=== PATIENT | female | born 1950 | race Caucasian/White ===

== ENCOUNTER 2018-06-09 10:07 | Inpatient (IN) | payer OTHER ==
[~2018-06-09] VITALS: Ht 167.6 cm; Wt 61.2 kg
[~2018-06-09 10:07] MED LIST: ASPIRIN81 M2 PO; BACTRIM DS TAB1 EACH PO; BUFFERIN 81 MG81 MG; CALCIUM 1,0001 EACH PO; CARDIZEM CD240 MG PO; CELEBREX50 MG PO; CENTRUM TABLET1 TAB PO; CHANTIX1 MG PO; DIOVAN160 MG PO; DOCUSATE SODIU100 MG PO; E-400 C-500 &1 EACH PO; FAMOTIDINE20 MG PO; FENTANYL PA25 MCG/HR TP; HYDROCODON-ACE1 EAC7 PO; HYDROCODON-ACE1 EAC8 PO; HYDROCODONE-AP1 EA11 PO; IRON325; MELOXICAM7.5 MG PO; MS CONTIN 30 MG30 M1 PO; NORCO 10-325 T1 EACH PO; OMEGA-3 FISH O1 EAC3 PO; OXYCONTIN20 M1 PO; OXYIR5 MG PO; PARAFON FORTE500 M2 PO; PROBIOTIC DIGE1 EACH PO; ROBAXIN 750 MG750 M1 PO; SPECTRACEF400 MG PO; SUPER B COMPLE1 EAC2 PO; ULTRAM ER100 MG PO; VITAMIN C + RO500 MG PO; VITAMIN D31000 UNI2 PO; WELLBUTRIN 100100 M1 PO; WELLBUTRIN 100100 MG NG; WELLBUTRIN 100100 MG PO; WELLBUTRIN SR150 MG PO; XOPENEX HF1 UDINHALE IH; ZOLOFT100 MG PO
[2018-06-10 15:02] VITALS: BP 131/73
[2018-06-10 19:42] VITALS: BP 122/65
--- NOTE | 2018-06-10 20:13 | NUR ---
PT ARRIVED FROM [facility] AT 1530 WITH VOLUNTEER TRANSPORT. C/O PAIN IN HER LOWER BACK AND AROUND PEG TUBE. PEG TUBE REMAINS INTACT AND PATENT, SITE CLEANED AND DRESSING CHANGED. VITALS REMAIN STABLE. TRACH SITE INCISION HEALED, REDNESS AROUND SITE NOTED. LS COARSE, PT HAS A NON-PRODUCTIVE COUGH, ON RA WITH SATS >95%. UP WITH 1 PERSON PIVOT TRANSFER AND TOLERATED WELL. Q1H VISUAL CHECKS. CALL LIGHT WITHIN REACH. FALL PRECAUTIONS IN PLACE
--- NOTE | 2018-06-10 23:58 | NUR ---
ASSUMED CARE OF PT AT 1915. AT 234, PT AMBULATED TO BATHROOM. ON RETURN TO HER BED, PT C/O SHORTNESS OF AIR. O2 SAT=99% ON RETURN TO BED, LUNGS WITH STRIDOR. RESPIRATORY THERAPIST EXAMINED PT, PLACED COOLED OXYGEN PER MASK. XANAX GIVEN PO, AFTER PT C/O FEELING ANXIOUS. AT 235, PT STATED SHE WAS FEELING "BETTER", OXYGEN SAT=98%. CALL PLACED TO DR APPLE'S ANSWERING SERVICE TO REQUEST PRN NEB TX. AWAITING CALL BACK. WILL CONTINUE TO MONITOR CLOSELY.
--- NOTE | 2018-06-11 03:58 | NUR ---
PT HAS HAD NO FURTHER C/O SHORTNESS OF AIR. FELL ASLEEP APPROX 30 MINUTES AFTER XANAX GIVEN. SHE REMOVED O2 MASK AFTER 20 MINUTES, NO DYPSNEA NOTED SINCE. HAS APPEARED TO BE SLEEPING WHEN CHECKED ON HOURLY ROUNDS. FALL PRECAUTIONS IN PLACE.
[2018-06-11 05:11] LABS: HEMATOCRIT 31.5 % (37.0-47.0); MCH 29.6 pg (26.0-34.0); MCHC 31.7 g/dL (28.0-37.0); MCV 93.4 fL (80.0-100.0); RBC 3.37 mil/uL (4.20-5.00); RDW 17.6 % (10.5-14.5); WBC 11.1 thou/uL (4.0-11.0)
[2018-06-11 05:30] LABS: CREATININE 0.6 mg/dL (0.6-1.0); POTASSIUM 3.7 mmol/L (3.5-5.1)
[2018-06-11 07:30] VITALS: BP 103/61
--- NOTE | 2018-06-11 09:40 | NUR ---
tried to visit with sharyn perez 2 this am, she was working with ot and then with st. will follow as needed for dc needs.
--- NOTE | 2018-06-11 12:03 | NUR ---
ASSUMED CARE AT 0700. PATIENT IS ALERT AND ORIENTED X4. PATIENT HAS LEFT EYE BLINDNESS. CHAVES'S, COMMUNITY HEALTH NURSING DIRECTOR ARE EQUAL. LUNGS ARE COARSE AND DEMINISHED. PATIENT CONTINUES ON RESPIRATORY TX. ABD IS SOFT WITH BSX4. UP TO THE DINING ROOM PER W/C. PATIENT IS INCONTINENT OF B & B. FALL AND SAFETY PROTOCOLS IN PLACE. DENIES PAIN AT THIS TIME. CONTINUES TO PROGRESS SLOWLY TOWARDS D/C GOALS. WILL CONTINUE TO MONITER.
--- NOTE | 2018-06-11 12:14 | NUR ---
PATIENT HAS A G.T. FOR TUBE FEEDING IF SHE EATS <50% OF HER MEALS. SHE IS TO RECIEVE 1 CAN PER G.T. WILL CONTINUE TO MONITER.
--- NOTE | 2018-06-11 14:46 | NUR ---
Patient participated in community reintegration on 06/11/18 with PHYSICAL THERAPY. Refer to documentation by PT.
[2018-06-11 17:00] VITALS: BP 125/79
[2018-06-11 19:23] VITALS: BP 116/58
[2018-06-11 22:10] LABS: GLYCOHEMOGLOBIN (HGB A1C) 5.2 % (4.8-5.6)
--- NOTE | 2018-06-12 03:40 | NUR ---
ASSUMED CARE OF PT AT 1915. PT ALERT AND ORIENTED X4. PT SLEPT QUIETLY UNTIL 0200, WHEN SHE WAS AMBULATED TO THE BATHROOM. ON RETURN TO BED, SHE C/O SHORTNESS OF AIR. O2 SAT WAS 99% ON ROOM AIR, LUNGS WITH SCATTERED WHEEZES AND COARSE. OXYCODONE GIVEN FOR C/O PAIN, AND NEB TX GIVEN BY RESP THERAPY. PT HAS APPEARED TO BE SLEEPING SINCE THAT TIME WITHOUT FURTHER C/O'S. AMBULATED WITH ASSIST OF ONE USING GAIT BELT AND WALKER. CHECKED ON HOURLY ROUNDS. BED ALARM ON.
[2018-06-12 08:35] VITALS: BP 108/68
--- NOTE | 2018-06-12 09:59 | HC ---
[facility] [place] [address] CONSULTATION Name: PRIMO THOMAS Room #: 509-P ADM IN M.R.#: [id number] Admission: 06/10/18 Attend Phys: Moy Freitas MD Discharge: Date of : 48 Report #: [id number] THIS REPORT FOR: //name// CC: Moy Freitas [facility] unknown DATE OF SERVICE: 06/11/2018 ATTENDING PHYSICIAN: Moy Freitas MD. REASON FOR CONSULTATION: Medical management. HISTORY OF PRESENT ILLNESS: The patient is a 67-year-old female transferred out [facility] for inpatient rehabilitation following a hospital stay for vascular and respiratory issues. She was admitted to [facility] for an elective abdominal aortic aneurysm stent redo with sternotomy and transcatheter aortic valve replacement at [facility]. However, post-procedure, she had complications with respiratory failure and pneumonia, which ultimately led to prolonged ventilation requiring tracheostomy tube and PEG tube placement. This has precipitated symptoms of vocal cord paralysis. She is gradually medically stabilized and transferred to the LTAC facility. There, she was weaned off the ventilator and subsequently the tracheostomy tube was removed. She has now been upgraded to therapies and oral diet and has been admitted for inpatient rehabilitation. PAST MEDICAL HISTORY: Abdominal aortic aneurysm, hypertension, recent respiratory failure as noted above. PAST SURGICAL HISTORY: As above. FAMILY HISTORY: Noncontributory. SOCIAL HISTORY: No known chronic alcohol or tobacco use. ALLERGIES: AUGMENTIN, CODEINE, SOME OTHER INTOLERANCES. MEDICATIONS: Tylenol, aspirin, Lipitor, vitamin D, Nephrocaps, metoprolol, oxycodone, Senokot, Zoloft, Xanax. REVIEW OF SYSTEMS: Denies headache, chest pain, shortness of breath, abdominal pain, nausea, vomiting, diarrhea, constipation, dysuria, or syncope. OBJECTIVE: VITAL SIGNS: Temperature 36.7, pulse 82, respirations 18, blood pressure 103/61, O2 sat 94% on room air. GENERAL: She is awake and alert, in no distress. [address] [address] CONSULTATION Name: PRIMO THOMAS Room #: 509-P ADM IN M.R.#: [id number] Admission: 06/10/18 Attend Phys: Moy Freitas MD Discharge: Date of : 49 Report #: [id number] HEAD AND NECK: Unremarkable with oral tracheostomy stoma. LUNGS: Clear bilateral. There is a sternotomy scar. HEART: Regular, no murmur. ABDOMEN: Soft, normoactive bowel sounds. PEG tube. EXTREMITIES: No cyanosis, clubbing or edema. NEUROLOGIC: Global strength 3/5 throughout. LABORATORY DATA: Hemoglobin was 10. Basic chemistry is unremarkable. ASSESSMENT: 1. Critical illness myopathy. 2. Abdominal aortic aneurysm, recent surgical procedure. 3. Recent transcatheter aortic valve replacement. 4. Vocal cord paralysis. 5. Recent respiratory failure, now decannulated. PLAN: We will continue her medications and transfer. SCDs while she is in bed, but she is up and mobile, so we will hold off on any Lovenox DVT prophylaxis at this point. I will follow her hospital stay with you. <ELECTRONICALLY SIGNED> By: Moy Corbett MD 06/12/18 0959 [id number] [id number] Moy Corbett MD /nt
--- NOTE | 2018-06-12 11:06 | NUR ---
ASSUMED CARE AT 0700. PATIENT IS ALERT AND ORIENTED X4. DENIES PAIN, C/O ANXIETY. PRN ATIVAN GIVEN. HAS STRIDOR SOUND, SAT 94% ON RA. CALLED RT TO GIVE HER PRN BREATHING TX. PT DIDN'T DO WELL WITH THERAPY THIS AM. NOTIFIED MIKIE AND RECEIVED ORDER FOR CHEST XRAY. XRAY SHOWS NO ACUTE ISSUES. DR. APPLE CAME TO SEE PT THIS AM. ORDER CONSULT FOR OTORHINOLARYNGOLOGY. CALLED AND LEFT MESSAGE TO ANSWERING SERVICE TO ASK DR. ALLRED COME TO EVALUATE PT'S VOCAL CORD DYSFUNCTION/STRIDOR. HAD TRACH REMOVED 2 WEEKS AGO. SPEECH THERAPY WILL DO VIDEO SWALLOWING ON PT THIS AM. PT ATE 40% FOR BREAFKFAST. DENIES NEED FOR FEEDING. ENCOURAGED PT TO EAT AND WILL GIVE FEEDING IF EAT LESS 50% FOR LUNCH. GTUBE SITE DRESSING CHANGED. HAS LITTLE REDNESS. OT IS WORKING WITH PT AT THIS MOMENT. PATIENT HAS LEFT EYE BLINDNESS. C/O STUFFING NOSE AND CONGESTED, WILL ASK FOR NASAL PRAY. PATIENT CONTINUES ON RESPIRATORY TX. ABD IS SOFT WITH BSX4. LAST BM WAS 2 DAYS AGO. DENIES CONSTIPATION. PATIENT CONTINENT OF B & B AND HAS STRESS INCONT AT TIME. FALL AND SAFETY PROTOCOLS IN PLACE. DENIES PAIN AT THIS TIME. PT UP WITH MOD -MIN ASSIST DEPEND ON HER MOODS AND STRENGTH. CONTINUES TO PROGRESS SLOWLY TOWARDS D/C GOALS. WILL CONTINUE TO [id number].
[2018-06-12 19:58] VITALS: BP 151/70
--- NOTE | 2018-06-13 05:12 | NUR ---
PATIENTS CARES WERE ASSUMED AT SHIFT CHANGE. PATIENT WAS ASSESSED AND MEDS WERE PASSED. HOURLY ROUNDING WAS DONE AND PATIENT DID APPER TO BE SLEEPING. THE BED ALARM IS ON AND THE BED IS IN A LOW AND LOCKED POSITION.
[2018-06-13 09:21] VITALS: BP 111/65
--- NOTE | 2018-06-13 18:30 | NUR ---
ASSUMED CARE AT 0700. REPORTS SLEPT GOOD WITH PAIN AND ANXIETY MEDS. PATIENT IS ALERT AND ORIENTED X4. PATIENT HAS LEFT EYE BLINDNESS. FIBERGLASS ROVING WINDER ARE EQUAL. LUNGS ARE DIMINISHED. PATIENT NO NEED OF BREATHING RESPIRATORY TX. ENCOURAGE PT TO DEEP BREATH. TO HELP WITH HER LUNG AND ANXIETY AND PT HAS TRYING TO REMEMBER. ABD IS SOFT WITH BSX4. REPORTS HAD BM TODAY. UP TO THE DINING ROOM PER W/C. PATIENT IS INCONTINENT OF B & B. ATE 50% OF EAT MEALS. NO FEEDING NEEDS. OFFERED SUPPORTIVE CARE. ENCOURAGED PT TO VOICE HER NEEDS. GIVE PRN PAIN MEDS AND ANXIETY MEDS PER REQUEST. TOLERATED THERAPY WELL. HER GOALS IS TO WORK TOWARDS DISCHARGE GOALS. VIDEO SWALLOWING TODAY. SHOWS PT ASPIRATED ON THIN LIQUID. PT STARTED ON NECTAR THICK LIQUID AND ON MECH SOFT DIET NOW. TOLERATED WELL. PT AND HER AWARE AND WILLING TO WORK WITH ST ON VITAL STIM TO STRENGTH HER SWALLOWING. FALL AND SAFETY PROTOCOLS IN PLACE. DENIES PAIN AT THIS TIME. CONTINUES TO PROGRESS SLOWLY TOWARDS D/C GOALS. WILL GIVE REPORT TO NIGHT NURSE TO CONTINUE TO MONITOR.
[2018-06-13 20:15] VITALS: BP 100/59
--- NOTE | 2018-06-14 04:35 | NUR ---
ASSUMED CARE OF PATIENT AROUND 1900. PATIENT ABLE TO TAKE PO MEDICATIONS WITHOUT DIFFICULTY. UP TO BATHROOM WITH GAIT BELT AND WALKER W/ TECH ASSISTANCE, SOA W/ WALKING. ABLE TO RECOVER. PT AWAKE AROUND 0200 W/ ANXIETY. XANAX ADMINISTERED AND RELAXATION EXERCISES REVIEWED WITH PATIENT. PT ABLE TO RELAX AFTER A FEW MINUTES, RT TX OFFERED TO PATIENT, BUT PT DECLINED. PROGRESSION TOWARD GOALS NOTED. WILL CONTIUE TO MONITOR.
[2018-06-14 08:46] VITALS: BP 125/74
--- NOTE | 2018-06-14 10:31 | NUR ---
ASSUMED CARE AT 0700. PATIENT IS ALERT AND ORIENTED X4. PATIENT CHAVES'S , APPLICATION SECURITY SPECIALIST ARE EQUAL. LUNGS ARE CLEAR AND DEMINISED WITH HUM LIKE NOISE. DENIES ANY SOA. HAS PRN RESP TX FOR SOA. PATIENT ABD IS SOFT WITH BSX4. FALL AND SAFETY PROTOCOLS IN PLACE. C/O ABD PAIN. MEDICATED WITH PRN PAIN MED. CONTINUES TO PROGRESS SLOWLY TOWARDS D/C GOALS. WILL CONTINUE TO MONITER.
--- NOTE | 2018-06-14 11:52 | HC ---
[facility] [place] [address] CONSULTATION Name: PRIMO THOMAS Room #: 509-P [facility] IN M.R.#: [id number] Admission: 06/10/18 Attend Phys: Moy Freitas MD Discharge: Date of : 48 Report #: [id number] THIS REPORT FOR: //name// CC: Moy LAWLER unknown DATE OF SERVICE: 06/12/2018 REASON FOR CONSULTATION: Voice change. HISTORY OF PRESENT ILLNESS: The patient is a 67-year-old female admitted to [facility] from [facility]. The patient recently had, at [facility], AAA repair with a revision sternotomy. Postoperatively, she had a yong course, developed pneumonia with acute respiratory failure and ventilation, eventually a tracheostomy and PEG tube was placed. In reading the notes from [facility], it was noted that the tracheostomy tube was placed due to "bilateral vocal cord paralysis." I have no records as to the cause of the bilateral vocal cord paralysis and no records exist at this time from [facility]. 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. She did not have any voice problems, had no breathy hoarseness and had no difficulty tolerating p.o. At [facility], she was decannulated on 06/04 and has subsequently been on room air. At the present time, she denies any problems with dysphagia, aspiration or choking and said she has been on a regular diet and tolerating it well. She is able to swallow pills, but these needed to be cut in half or done singly in oral fashion. The patient notes that her vocal tone seems to be similar to her premorbid voice; however, she notes that it takes more effort and breath to drive her voice than before. She is denying any dyspnea. She is denying any dyspnea on activity. She has noted since her trach tube has been removed, during brisk inhalation, she makes noise. She denies any difficulty with sleeping behavior. ALLERGIES TO MEDICATION: None on chart. MEDICATIONS ON ADMISSION: Please see the MAR. PHYSICAL EXAMINATION: GENERAL: She was examined in the hospital bed. She was in a seated position. She is alert and oriented. She was able to carry on a conversation without difficulty and without becoming dyspneic. It was noted during brisk inhalations, she would make a slightly audible noise. VITAL SIGNS: Noted to be unremarkable. HEENT: Examination of the ears is unremarkable. Nares reveal some mild nasal mucus crusting anteriorly. She has a slightly deviated nasal septum. Oral cavity was unremarkable. Oropharynx is normal. She has good elevation of the soft palate in midline. Oropharyngeal mucosa appears normal. Tongue has full [address] [address] CONSULTATION Name: WILLIAMPRIMO CHAVES Room #: 509-P [facility] IN M.R.#: [id number] Admission: 06/10/18 Attend Phys: Moy Freitas MD Discharge: Date of : 49 Report #: [id number] mobility present. NECK: Palpation of neck reveals no neck masses. She has a midline sternotomy scar that is healing. She has a tracheostomy incision that is nearly fully healed. There is no air leak from the tracheostomy stoma itself. Palpation of the trachea still somewhat tender for her. There is a palpable absence of tracheal cartilage. Procedure was performed after the patient verbalized, consented. Topical Pontocaine and Carlos-Synephrine was placed to the right naris. After waiting 5 minutes for topical anesthesia, I introduced the flexible nasopharyngoscope into the right naris and advanced it to the nasopharynx, oropharynx and into the hypopharynx. After visualization was performed, it was withdrawn in a serial fashion. Findings in the nares revealed no evidence of any nasal masses, polyps, inflammation or obstruction. The nasopharynx is dry, but otherwise unremarkable. The oropharyngeal mucosa appears normal. Base of tongue, preepiglottic space, vallecula, epiglottis are normal. Piriform sinus mucosa appears normal. Both true cords are intact without lesions. The postcricoid space was normal. At rest, both vocal cords are medialized more than normal. During inspiration, there is mild abduction of both vocal cords, but not complete and normal adduction. There is minimal rotation of the arytenoids during attempts of vocalization of respiration. Poor abduction also exists. There exists a small glottic gap during vocalization, which represents incomplete closure of the glottis. She does have good epiglottic tilt during the swallow, however. ASSESSMENT: 1. Bilateral vocal cord paresis. Etiology at this point is unknown. I have requested records from [facility] to find out if there was a surgical reason for bilateral vocal cord paresis to be in place. It is likely that this paresis with an ongoing lower respiratory disorder caused the respiratory failure and the need for tracheostomy. At this time, the patient is not having any risk for aspiration; however, I would encourage speech therapy to look into a more formal evaluation for her aspiration risk given the fact she has incomplete glottic closure. 2. As long as she is stable from a respiratory standpoint, there is no advantage to perform any surgical procedures to open the airway further to improve her airflow. This will consist of arytenoidectomies, partial cord excision. This will scarify some of her vocal function for breathe ability. It is my understanding at this time, she has adequate respiratory function and there will be no strong value for improving that with any surgical procedure. I would not recommend re-placing the tracheostomy tube at this standpoint since she does not have a strong aspiration risk. She seems to have the ability to protect her airway and she has good respiratory function. I will look further into the etiology of the bilateral vocal cord paresis. There is a possibility [facility] [address] [place] [address] CONSULTATION Name: PRIMO THOMAS Room #: 509-P [facility] IN ..#: [id number] Admission: 06/10/18 Attend Phys: Moy Freitas MD Discharge: Date of : 49 Report #: [id number] that this was surgically caused that may improve with time. Thank you for this consultation. I discussed this with the patient. I will follow along with you. <ELECTRONICALLY SIGNED> By: Segundo Lopez MD 06/14/18 1152 [id number] [id number] Segundo Lopez MD /nt
[2018-06-14 19:55] VITALS: BP 127/71
--- NOTE | 2018-06-15 02:28 | NUR ---
Assumed care of pt at 1900. Pt a&ox4. Pt states she feels sob when she woke up. Breath sounds sound wheezy. 94-95% on room air. Prn breathing treatment administered by RT. Prn pain med and xanax administered for anxiety per patient request. 2 hours after breathing treatment, pt states she feels sob again. quarter section ironer paged. No call back yet. RT found previous one-time order for nebulized racemic breathing treatment that was not administered. RT administered treatment and put pt on 35% facemask mist afterwards. Pt states she feels much better and is breathing better now. Peg tube in place. Fall precautions in place. Will continue to monitor.
[2018-06-15 09:05] VITALS: BP 102/63
[2018-06-15 18:58] VITALS: BP 117/65
--- NOTE | 2018-06-15 19:42 | NUR ---
ASSUMED CARE OF PT AT 0715. PT IS A&OX4. IS ON ROOM AIR, BUT REPORTS SOB. RT FOLLOWING. IS UP WITH 1 ASSIT KARLEE MALCOLM. REPORTS PAIN IN ABD AROUND PEG TUBE SITE THAT IS BEING MONITORED WITH MEDS. DRSG INTACT. FALL PRECAUTIONS & HOURLY ROUNDING MAINTAINED. LABS & VITALS REVIEWED. WILL CONTINUE TO MONTIOR.
--- NOTE | 2018-06-15 23:50 | NUR ---
PT ASSESSMENT COMPLETED AND VSS. MEDS GIVEN ORDERED AND WELL TOLERATED. FALL PRECAUTIONS IN PLACE. UP WITH ASST/GAIT/WALKER. SAT WNL ON RA. SLEEPING WELL. WILL CONTINUE TO MONITOR FREQUENTLY.
[2018-06-16 09:07] VITALS: BP 118/72
--- NOTE | 2018-06-16 10:57 | NUR ---
ASSUMED CARE AT 0700. REPORTS SLEEP GOOD LAST NIGHT. PATIENT IS ALERT AND ORIENTED X4. C/O ANXIETY, GAVE PRN XANAX THIS AM. OT ASSISTED PT WITH BATH. HAD BACK PAIN 5/10, GAVE PRN TYLENOL. REASSESSMENT PER CHART. ARMATURE BANDER ARE EQUAL. LUNGS ARE CLEAR AND DIMINISED WITH HUM LIKE NOISE. DENIES ANY SOA. HAS PRN RESP TX FOR SOA. PATIENT ABD IS SOFT WITH BSX4. HAD BM THIS AM. GTUBE SITE RED, NOTIFIED DOV GARCIA AND OBTAINED ORDER FOR BACTROBAN BID. DRESSING CHANGED. OFFERED SUPPORTIVE CARE. ENCOURAGED PT TO VOICE HER NEEDS. PT UP WITH CGA AND WALKER. CONT BLADDER, WEARS BRIEFS FOR STRESS INCONT. PT ATE 30% BREAKFAST, REFUSED TUBE FEEDING. PT SAID SHE NORMALLY EAT BETTER FOR LUNCH AND DINNER. WILL CONTINUE TO MONITOR. FALL AND SAFETY PROTOCOLS IN PLACE. CONTINUES TO PROGRESS SLOWLY TOWARDS D/C GOALS. CHECK FREQUENTLY FOR NEEDS AND SAFETY.WILL CONTINUE TO MONITER.
[2018-06-16 16:45] VITALS: BP 121/67
[2018-06-16 19:32] VITALS: BP 112/69
--- NOTE | 2018-06-17 05:13 | NUR ---
ASSUMED CARE OF PT AT 1915. PT ALERT AND ORIENTED X4, CALM AND COOPERATIVE. PT AMBULATES TO BATHROOM WITH ASSIST OF ONE, USING GAIT BELT AND WALKER. C/O PAIN IN LEFT ABDOMEN, RELIEVED WITH PO OXYCODONE. DENIES NAUSEA. DYPSNEA NOTED ON EXERTION. LUNGS COARSE THROUGHOUT, OCCASIONAL NON-PRODUCTIVE COUGH NOTED. HAS APPEARED TO BE SLEEPING WHEN CHECKED ON HOURLY ROUNDS. FALL PRECAUTIONS IN PLACE.
--- NOTE | 2018-06-17 06:55 | HC ---
[facility] [place] [address] CONSULTATION Name: PRIMO THOMAS Room #: 509-P ADM IN M.R.#: [id number] Admission: 06/10/18 Attend Phys: Moy Freitas MD Discharge: Date of : 49 Report #: [id number] THIS REPORT FOR: //name// CC: Moy Freitas [facility] unknown DATE OF SERVICE: 06/14/2018 NEUROBEHAVIORAL STATUS EXAM AGE: 67 ATTENDING PHYSICIAN: Moy Freitas MD HVAC CONTROLS TECHNICIAN: Negro Cordova, PhD. CLINICAL PRESENTATION: The patient is a 67-year-old female admitted to the rehab unit at [facility] for a comprehensive inpatient rehabilitation program. She was admitted from a long-term care hospitalization at the [facility]. Her admitting diagnostic assessment was critical illness myopathy, acute respiratory failure with bilateral vocal cord paralysis, status post tracheostomy, status post deep cannulation on 06/04/2018, abdominal aortic aneurysm status post redo sternotomy with transcatheter aortic valve replacement, coronary artery disease with previous myocardial infarction, history of ischemic CVA on 07/30/2017 status post TPA, hyperlipidemia, protein-calorie malnutrition, depression, degenerative joint disease with chronic low back pain and a history of tobacco abuse. The patient reports frustration with her lengthy hospitalization and the severe complications that developed while she was undergoing her surgery. The patient and her indicate that she had had a previous aneurysm repair 4 years ago. This current aneurysm repair was pre-emptive to avoid a more severe acute medical event. The extent of complications have been frustrating to her. Additionally, vocal cord paralysis has occurred and speech is soft and requires amplification. Neuropsychological consultation was requested to provide assistance in assessment of cognitive and emotional status and provide recommendations and services. She has been 40 years and has no children. The patient is a high school graduate. 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 TECHNIQUES UTILIZED: Clinical interview, review of medical records, staff consultation and behavioral observation, family interview -- spouse. [address] [address] CONSULTATION Name: PRIMO THOMAS Room #: 509-P [facility] IN M.R.#: [id number] Admission: 06/10/18 Attend Phys: Moy Freitas MD Discharge: Date of : 48 Report #: [id number] EXAMINATION FINDINGS: The patient was alert and cooperative with the assessment. She accurately described events surrounding her hospitalization and the purpose of treatment. She does not present with aphasia, auditory or visual hallucinations. Her thoughts are logical and goal oriented. She was tearful at times during the interview and angry with having required an extended hospitalization. She has a longstanding history of treatment for depression. Currently, she describes symptoms of anxiety and depression, fatigue and tiredness. Difficulty with memory is noted. She does not report difficulty with sleep or appetite. It should be noted that while independent with instrumental activities of daily living, she discontinued driving following the last aneurysm procedure because of a left visual field deficit. Her performance on the MMSE 2 brief version is within normal limits with a raw score of 15 of 16. She was oriented to time and place. Initial registration was 3/3. Immediate recall was 2/3. The patient was 5/5 for serial sevens, 1 for drawing, writing and being able to follow a simple verbal command. Her overall score on the standard version of the MMSE 2 was 29 of 30, which is within normal limits. Clock drawing was within normal limits. The patient is presenting with anxiety and depression, most likely associated with adjustment. DIAGNOSTIC IMPRESSION: Adjustment disorder with anxiety and depressed mood. Persistent depressive disorder (dysthymia) -- by history. RECOMMENDATIONS: The patient will benefit from reassurance in regard to her recovery and ability to meet therapeutic goals. Keeping a written calendar of goals that she has accomplished so that she can be reminded of her much better level of functioning now in comparison to her early recovery. Establishing a comparison point of diminished functioning in contrast to current level of functioning will help provide perspective and improve overall mood. Verbal praise and complements about participation in therapies and also the use of relaxation techniques to help manage anxiety. Thank you very much for allowing me to provide the consultation on this patient. <ELECTRONICALLY SIGNED> By: Negro Cordova, PhD 06/17/18 0655 [id number] Negro Cordova, PhD /nt
[2018-06-17 08:00] VITALS: BP 124/79
--- NOTE | 2018-06-17 08:12 | NUR ---
ASSUME PT CARE AT 0715. REPORTS SLEPT GOOD. HAD ANXIETY MED THIS AM GIVEN BY NIGHT NURSE. C/O ABD PAIN ON GTUBE SITE RATE PAIN 5/10, GAVE PRN OXYCODONE PER REQUEST. UP WITH A WALKER, CGA TO RECLINER. PT IS EATING BREAKFAST WITH ST NOW. OFFERED SUPPORTIVE CARE. VSS ON RA. HER GOALS IS TO WORKING WITH THERAPISTS TO GET BETTER SO SHE CAN GO HOME WITH HER . ENCOURAGED PT TO VOICE HER NEEDS, TO EAT, TO DO DEEP BREATHING AND BE SAFE. PT CONTINUE TO BE NECTAR THICK, COMPLIANT WITH TREATMENT. PT CONTINUES TO BE ON VITAL STEM EXERCISE TO STRENGTHEN ABITILITY TO SWALLOW. FALL PRECAUTION IN PLACE. CALL LIGHT WITHIN REACH. CHECK FRENTQUENLY FOR NEED AND SAFETY.
--- NOTE | 2018-06-17 12:40 | NUR ---
team meeting, recommendation : cont v stem with st here, dc 06/24/18 hh ( pt, ot, st for v stem, and nursing).
[2018-06-17 17:00] VITALS: BP 108/57
[2018-06-17 19:18] VITALS: BP 122/60
--- NOTE | 2018-06-18 03:34 | NUR ---
ASSUMED CARE OF PT AT 1915. PT ALERT AND ORIENTED X4. ASSESSMENT COMPLETED. AMBULATES TO BATHROOM WITH STANDBY ASSIST USING GAIT BELT AND WALKER. C/O ABDOMINAL DISCOMFORT L>R, RELIEVED WITH OXYCODONE. CHECKED ON HOURLY ROUNDS. FALL PRECAUTIONS IN PLACE.
[2018-06-18 07:52] VITALS: BP 123/76
--- NOTE | 2018-06-18 11:37 | NUR ---
ASSUMED CARE AT APPROX 0715. PATIENT A/O X4. VSS. SOA NOTED WITH EXERTION, SATS MAINTAINED ON ROOM AIR. C/O GEN ABDOMINAL PAIN. MEDICATED PRIOR TO THERAPIES. PARTICIPATING IN THERAPY, UP X1 GB AND WALKER, CGA ASSIST. ATE >50% OF BREAKFAST. PEG TUBE FLUSHED CHECKED FOR PLACEMENT, CHECKED RESIDUAL - 15ML - FLUSHED WITH 25O CC WATER, PEG TUBE SITE CLEANSED WITH NS, MUPIROCIN OINTMENT APPLIED TO SITE AND DRESSED WITH DRAIN SPONGE, SECURED WITH PAPER TAPE. PATIENT ROUNDED ON HOURLY. FALL PRECAUTIONS IN PLACE. WILL CONTINUE TO MONITOR.
--- NOTE | 2018-06-18 12:41 | NUR ---
EDIT MADE TO PATIENT'S ADMISSION HISTORY ON 06/18/17 TO INCLUDE DATE OF EGD/PEG TUBE PLACEMENT ON 05/14/2018, PER DR. JIMMIE SNOW'S CONSULTATION FROM [facility].
--- NOTE | 2018-06-18 15:13 | NUR ---
Patient participated in community reintegration on 06/18/18 with Speech Therapy. Refer to documentation by
--- NOTE | 2018-06-18 15:21 | NUR ---
Pt PARTICIPATED IN COMMUNITY REINTEGRATION WITH ST ON 06/18/18, PLEASE REFER TO ST DOCUMENTATION
[2018-06-18 20:40] VITALS: BP 125/75
--- NOTE | 2018-06-19 02:08 | NUR ---
ASSUMED CARE OF PT AT 1915. PT ALERT AND ORIENTED X4. AMBULATES TO BATHROOM WITH STANDBY ASSIST USING GAIT BELT AND WALKER. C/O ABDOMINAL PAIN, WORSE ON LEFT SIDE, RELIEVED BY OXYCODONE. LUNGS DIMINISHED IN UPPER LOBES, CRACKLES HEARD IN BASES. SHORTNESS OF AIR NOTED WITH ANY EXERTION. APPEARS TO BE SLEEPING WHEN CHECKED ON HOURLY ROUNDS. FALL PRECAUTIONS IN PLACE.
[2018-06-19 07:50] VITALS: BP 120/68
[2018-06-19 20:13] VITALS: BP 112/73
--- NOTE | 2018-06-19 20:26 | NUR ---
ASSUMED PT CARE AT 0700H. PT A&O X4. PT HAS NO S/S OF DISTRESS. PT PARTICIPATES WITH THERAPY. PT IS UNDER SUPERVISION WHILE AMBULATING AND REQUIRES ASSIST GETTING UP FROM BATHROOM. PT HAS PEG TUBE DRS C/D/I. FLUSHED TWICE. PT TOLERATES MEALS AND MEDS WITH NECTAR THICK LIQUIDS. PT STATES PAIN IN NECK EARIER AND ABD LATER. PT TOLERATED PRN MED. PT HAD NORMAL BP AND BP MEDS HELD. PT CALLS APPROPRIATELY AND CONT TO BE MONITORED FOR SAFETY.
--- NOTE | 2018-06-20 06:14 | NUR ---
OXY IR FOR ABD PAIN AND VOLTAREN FOR LOWER BACK PAIN AT HS HELPFUL. PEG TUBE FLUSHED WITH 50 CC WATER, BACTROBAN TO REDDENED AREA AT SITE. UP TO BATHROOM WITH STANDBY ASSIST AND WALKER. PLEASANT
[2018-06-20 07:40] VITALS: BP 129/85
--- NOTE | 2018-06-20 12:43 | H ---
[facility] [place] [address] HISTORY AND PHYSICAL Name: PRIMO THOMAS Room #: 509-P ADM IN M.R.#: [id number] Admission: 06/10/18 Attend Phys: Moy Freitas MD Discharge: Date of : 48 Report #: [id number] THIS REPORT FOR: //name// CC: Moy Freitas [facility] unknown DATE OF SERVICE: 06/10/2018 HISTORY OF PRESENT ILLNESS: This is a 67-year-old female who was transferred to [facility] from [facility]. The patient was initially admitted to [facility] the [place] for an elective repair of descending aorta with bifurcated mesh graft and stenting x 2 with subsequent carotid subclavian bypass done by Cardiothoracic Surgery. Her postoperative course was very complicated. She developed pneumonia along with acute respiratory failure. She ultimately required a tracheostomy and PEG tube placement. She also had noted vocal cord paralysis bilaterally. The patient first had issues with her ascending aortic aneurysm back in 2013 when she had an emergency repair. Then during her [facility] stay, she was able to be decannulated on 06/04/2018 and she has been on room air since that time. Her PEG tube has not been utilized in the last week and she is tolerating her diet. She is to have Jevity boluses if eats less than 50% of her meal. She is off her IV medications and her PICC line was discontinued prior to transfer to [facility]. Due to her prolonged hospital stay and critical illness myopathy, she is being admitted to acute rehab for physical, occupational and speech therapies. Today, the patient denies chest pain. She does have shortness of air and cough that is nonproductive. Her trach stoma site has scabbed over. She denies any abdominal pain or nausea. She has intermittent constipation. She denies dysuria. Her urinary incontinence is improving and she is able to tell when she has to urinate at this time. She denies any leg swelling. She does have chronic low back pain with previous lumbar spinal fusions. She has had history of a stroke in 07/2017 and denies any residual deficits since that time. She did receive TPA. PAST MEDICAL HISTORY: As noted above and hyperlipidemia, depression, cataracts, posterior vitreous detachment of the left and right eyes, hypertension, degenerative joint disease, previous [place], history of gout and degenerative joint disease and previous pleural effusion in 01/2014. CODE STATUS: Full code. ALLERGIES: AUGMENTIN, NICKEL, CODEINE, FORMALDEHYDE. CURRENT MEDICATIONS: Tylenol 650 q.4 hours p.r.n., aspirin 81 mg daily, Lipitor 20 mg at bedtime, bisacodyl suppository 10 mg p.r.n., Colace 100 mg twice a day p.r.n., milk of mag 10 mL p.r.n., Senokot 8.6 mg daily p.r.n. [address] [address] HISTORY AND PHYSICAL Name: WILLIAMPRIMO CHAVES Room #: 509-P [facility] IN M.R.#: [id number] Admission: 06/10/18 Attend Phys: Moy Freitas MD Discharge: Date of : 48 Report #: [id number] HABITS: The patient quit smoking cigarettes. No ETOH use. No illicit drug use. SOCIAL HISTORY: The patient is . She lives at home with her . She has one stair to enter the house, then all living on one level. She does have an upstairs that she does not need to utilize. She has a basement laundry that her does. She utilized no assistive device prior to her admission. She was independent with ADLs and shares the IADLs with her spouse. Her spouse provides the driving. She denies fall history. REVIEW OF SYSTEMS: Remainder of her 14-point review of systems is negative except as listed in HPI. PHYSICAL EXAMINATION: VITAL SIGNS: Blood pressure 131/73, respirations 15, pulse is 74, she is 100% oxygen on room air. GENERAL: She is awake, alert. She is oriented x 4. She is in no acute distress. She is on room air. HEENT: Head is normocephalic. Eyes: EOMs are intact with no icterus. She does report some mild left peripheral vision loss. NECK: She has a trach stoma that is scabbed over, healing as would expect. CHEST: She does have a few scattered rhonchi. She does have hoarseness when she speaks. Otherwise, lungs are diminished. CARDIAC: She has a midline sternal incision that is healing as expected. S1, S2 intact. ABDOMEN: Bowel sounds are positive. She is soft, nontender, nondistended. She has a PEG tube. She has some mild erythema and minimal serosanguineous drainage noted. GENITOURINARY: No CVA tenderness. EXTREMITIES: She has functional range of motion of bilateral upper extremities. She has equal overweaver strength. No clonus. Grossly 3+ to 4-/5 bilateral upper extremities. Functional range of motion in bilateral lower extremities with negative Homans sign, able to lifting anti-gravity. Lower extremity strength grossly 3+ to 4-/5. SKIN: Very dry. She has a right old PICC site that has been de-access. The dressing is clean, dry and intact. Other skin findings are as noted above. PSYCHIATRIC: Pleasant affect. NEUROLOGIC: Cranial nerves 2 through 12 grossly intact. No slurred speech. Equal facies. ASSESSMENT: 1. Critical illness myopathy. 2. Acute respiratory failure with bilateral vocal cord paralysis, status post tracheostomy, status post decannulation on 06/04/2018. 3. Abdominal aortic aneurysm, status post redo sternotomy with transcatheter aortic valve replacement at [facility] [address] [place] [address] HISTORY AND PHYSICAL Name: PRIMO THOMAS Room #: 509-P [facility] IN [facility].#: [id number] Admission: 06/10/18 Attend Phys: Moy Freitas MD Discharge: Date of : 48 Report #: [id number] 4. Coronary artery disease with previous myocardial infarction. 5. History of ischemic cerebrovascular accident 07/2017, status post TPA. 6. Hyperlipidemia. 7. Protein-calorie malnutrition. 8. Depression. 9. Degenerative joint disease with chronic low back pain. 10. History of tobacco abuse. PLAN: The patient has been admitted to acute inpatient rehabilitation. She will have physical, occupational and speech therapies. She will be on a mechanical soft with thin liquid diet. We will supplement with Jevity 1.5 one can with every meal if eats less than 50% of her meal. Dietitian will follow and adjust for caloric needs as required. We will have respiratory teach incentive spirometry and O2 per protocol. We will have Dr. Corbett follow for acute medical management. She will have neuropsychology testing with Dr. Cordova. We will check lab work in the morning including hemoglobin A1c as she is on daily Accu-Chek, but no known history of diabetes. Social work services will follow for discharge planning needs. She will have a team conference next Saturday. Please see extensive orders. <ELECTRONICALLY SIGNED> By: DEMARCUS Nails 06/20/18 1243 [id number] DEMARCUS Nails /nt
--- NOTE | 2018-06-20 15:13 | NUR ---
per bedside nurse, still checking with dr to see if pt tf is able to be removed or if she needs to keep in at dc and will provide family tf training on care and flushes.
--- NOTE | 2018-06-20 16:59 | NUR ---
ASSUMED CARE AT APPROX 0715. PATIENT A/O X4. VSS. SOA NOTED WITH EXERTION, LUNG SOUNDS WHEEZING THIS AM. RT CALLED AND GAVE PT BREATHING TX. SATS MAINTAINED ON ROOM AIR. C/O GEN ABDOMINAL PAIN. RATES PAIN 5/10, GAVE PRN OXYCODONE AND PRN TYLENOL GAVE TOGETHER PT SAID IT HELPS BETTER THAN WHEN IT ONE AT THE TIME. ANXIETY MED AND PAIN MEDS MEDICATED PRIOR TO THERAPIES. PARTICIPATING IN THERAPY, UP X1 GB AND WALKER, CGA ASSIST. ATE >50% OF BREAKFAST.LUNCH ATE 70%. PEG TUBE FLUSHED CHECKED FOR PLACEMENT, CHECKED RESIDUAL NO RESIDULE. FLUSHED WITH 25O CC WATER, PEG TUBE SITE CLEANSED WITH NS, MUPIROCIN OINTMENT APPLIED TO SITE AND DRESSED WITH DRAIN SPONGE, SECURED WITH PAPER TAPE. GTUBE SITE LOOKS BETTER. CALLED GI AND THEY SAID THE EARLIEST THEY CAN REMOVE IS 2/12 BEFORE PT DISCHARGE. GI WILL COME TO GIVE PT AND HER FRANCAB INSTRUCTION ON NEXT SATURDAY, INFORMED PT ABOUT GI PLAN. PATIENT ROUNDED ON HOURLY. OFFERED SUPPORTIVE CARE. REASSESSMENT PER CHART. ENCOURAGE PT TO VOICE HER NEEDS AND WORK TOWARDS GOALS. PT AND THIS BIOSTATISTICS MANAGER HAS GOOD RAPORT. FALL PRECAUTIONS IN PLACE. WILL CONTINUE TO MONITOR.
[2018-06-20 19:51] VITALS: BP 106/70
--- NOTE | 2018-06-21 03:29 | NUR ---
APPRECIATES PAIN MED AND XANAX, UP TO BATHROOM WITH STANDBY ASSIST. PEG TUBE CHECKED, NO RESIDUAL, FLUSHED WITH WATER, BACTROBAN TO SITE. INSISTS ON WEARING BRIEF FOR STRESS INCONTINENCE. TRACHEOSTOMY SCAR CLOSED.
[2018-06-21 07:30] VITALS: BP 143/83
--- NOTE | 2018-06-21 10:20 | NUR ---
ASSUMED CARE AT 0700. PATIENT IS ALERT AND ORIENTED X4. PATIENT CHAVES'S. UTILITY SPRAY OPERATOR ARE EQUAL. LUNGS ARE COARSE AND DEMINISHED. PATIENT REMAINS ON RESPIRATORY TX. UP IN CHAIR FOR MEALS. FALL AND SAFETY PROTOCOLS IN PLACE. C/O PAIN AT 0600 FOR BACK PAIN. CONTINUES TO PROGRESS TOWARDS D/C GOALS. WILL CONTINUE TO MONITER.
[2018-06-21 16:15] VITALS: BP 111/62
[2018-06-21 19:10] VITALS: BP 118/65
--- NOTE | 2018-06-22 02:04 | NUR ---
EATING GREATER THAN 50% EACH MEAL, G-TUBE FLUSHED WITH 100 CC WATER, BACTROBAN TO SITE. UP TO BATHROOM WITH STANDBY ASSIST, NEEDS MIN POWER ASSIST TO STAND BACK UP FROM TOILET. TYLENOL FOR COMTINUED ABD PAIN
[2018-06-22 07:38] VITALS: BP 132/78
--- NOTE | 2018-06-22 14:48 | NUR ---
ASSUMED CARE AT APPROX 0715. PATIENT A/O X4. C/O GENERALIZED ABDOMINAL PAIN, MAINLY FROM PEG TUBE SITE. DRESSING CHANGED, MUPIROCIN APPLIED. BED BATH COMPLETED WITH AID. VOLTAREN GEL AND PRN PAIN MED GIVEN NEEDED. NECTAR THICKENED LEMON WATER AT BEDSIDE, PATIENT ENCOURAGED TO INCREASE ORAL INTAKE. CHOBANI YOGURT DRINK THICKENED AND PROVIDED TO SUPPLEMENT LUNCH. FALL PRECAUTIONS IN PLACE. PATIENT RESTING IN BED. WILL CONTINUE TO MONITOR.
[2018-06-22 19:17] VITALS: BP 99/54
--- NOTE | 2018-06-23 00:29 | NUR ---
PT ASSESSMENT COMPLETED AND VSS. MEDS GIVEN ORDERED AND WELL TOLERATED. FALL PRECAUTIONS IN PLACE. UP TO THE BATHROOM WITH ASST/GAIT/WALKER. STEADY. CHANGED DSG TO PEG TUBE ORDERED. SLEEPING WELL. SAT WNL ON RA. WILL CONTINUE TO MONITOR FREQUENTLY.
[2018-06-23 06:44] LABS: HEMATOCRIT 35.2 % (37.0-47.0); HEMOGLOBIN 11.4 gm/dL (12.0-15.0); MCH 29.6 pg (26.0-34.0); MCHC 32.3 g/dL (28.0-37.0); MCV 91.8 fL (80.0-100.0); RBC 3.84 mil/uL (4.20-5.00); RDW 17.5 % (10.5-14.5); WBC 12.8 thou/uL (4.0-11.0)
[2018-06-23 07:16] LABS: CREATININE 0.7 mg/dL (0.6-1.0); POTASSIUM 3.9 mmol/L (3.5-5.1)
[2018-06-23 08:00] VITALS: BP 109/65
[2018-06-23] MEDS ORDERED: ATORVASTATIN CA40 MG PO (12:30)
[2018-06-23] MEDS ORDERED: LOPRESSOR25 PO (12:30)
[2018-06-23] MEDS ORDERED: VOLTAREN GEL 1100 G1 TOP (12:31)
[2018-06-23] MEDS ORDERED: OXYCODONE HCL 55 MG PO (12:31)
[2018-06-23] MEDS ORDERED: FLONASE 0.05%50 MCG NASAL (12:32)
[2018-06-23] MEDS ORDERED: ALPRAZOLAM 0.0.25 M1 PO (12:32)
[2018-06-23] MEDS ORDERED: ZOLOFT100 MG PO (12:32)
[2018-06-23 12:37] VITALS: BP 109/65
--- NOTE | 2018-06-23 14:02 | NUR ---
ASSUMED CARE AT APPROX 0715. PATIENT A/O X4. REPORTS SLEPT GOOD LAST NIGHT. C/O GENERALIZED ABDOMINAL PAIN, RATES PAIN 5/10, GAVE PRN TYLENOL, PRN OXYCODONE PER REQUESTS. DRESSING CHANGED, MUPIROCIN APPLIED. OT OFFERED SHOWER THIS AM, BED BATH COMPLETED WITH AID. VOLTAREN GEL AND PRN PAIN MED GIVEN NEEDED. NECTAR THICKENED LEMON WATER AT BEDSIDE, ST WORKED ON VITAL STEM THIS AM AND PLAN FOR VIDEO SWALLOWING TOMORROW. PATIENT ENCOURAGED TO INCREASE ORAL INTAKE. CHOBANI YOGURT DRINK THICKENED AND PROVIDED TO SUPPLEMENT LUNCH. FALL PRECAUTIONS IN PLACE. PHYSICAL THERAPIST EVALUATES AND SAID PT CAN BE M.I IN ROOM SINCE SHE WILL BE DISCHARGE HOME TOMORROW. PATIENT RESTING IN BED. IS AT BEDSIDE. WILL CONTINUE TO MONITOR.
--- NOTE | 2018-06-23 16:07 | NUR ---
cm notified by bedside nurse that pt might need/ benefit from home nebulizer. cm passed on information to dr and will cont following as needed for dc needs. pt bedside nurse, pt peg tube is supposed to be removed 06/24/18 prior to dc. will cont following as needed for dc needs.
[2018-06-23 22:29] VITALS: BP 114/68
--- NOTE | 2018-06-24 00:12 | NUR ---
PT ASSESSMENT COMPLETED AND VSS. MEDS GIVEN ORDERED AND WELL TOLERATED. FALL PRECAUTIONS IN PLACE. PT DENIES PAIN/N. SAT WNL ON 2L NC. UP TO THE BATHROOM WITH ASST/GAIT/WALKER. STEADY. DENIES NEEDS. SLEEPING WELL. WILL CONTINUE TO MONITOR FREQUENTLY.
--- NOTE | 2018-06-24 00:21 | NUR ---
PT ASSESSMENT COMPLETED AND VSS. MEDS GIVEN ORDERED AND WELL TOLERATED. MOD I IN ROOM. STEADY. PRN PAIN AND ANXIETY MEDICATION HELPFUL. SAT WNL ON RA. QUINTONS NEEDS. SLEEPING WELL. WILL CONTINUE TO MONITOR FREQUENTLY.
--- NOTE | 2018-06-24 09:39 | NUR ---
PT. DISCHARGING TODAY [facility]. NOTIFIED ADM. LIASON AT [facility] AND SHE WILL NOTIFY PT. OF TIME OF VISITS.
[2018-06-24 09:55] VITALS: BP 125/64
--- NOTE | 2018-06-24 10:17 | NUR ---
ASSUME PT CARE AT 0700. PT SLEPT GOOD LAST NIGHT. REQUESTED FOR ANXIETY AND OXYCODONE PRN THIS AM FOR GTUBE SITE PAIN 09/19. MEDS GIVEN. PT UP M.I WITH A WALKER. ATE 90% BREAKFAST. ASSISTED PT TO WASHED UP AND WASHED HER HAIR. PT REQUESTS FOR ANOTHER ANXIETY MED D/T WILL HAVE VIDEO SWALLOWING AND GTUBE REMOVE THIS AM. PT ALSO NEEDS NEBULIZE MACHINE AT HOME. CALLED DR. APPLE AND HE CAME TO GIVE VERBAL ORDER FOR EXTRA XANAX AND WROTE SCRIPT FOR NEBULIZE BEFORE DISCHARGE. ST CAME TO TAKE PT TO VIDEO SWALLOWING NOW. OFFERED SUPPORTIVCE CARE. DISCUSSED ABOUT CARE PLAN. ENCOURAGED PT TO CALL FOR HELP NEED IT. PT IS EXCITED TO GO HOME TODAY.WILL CONTINUE TO MONITOR.
--- NOTE | 2018-06-24 13:21 | NUR ---
team meeting, dc today with chcs, pt ot st nursing. new order for home btx, no dme needs, already has fww
--- NOTE | 2018-06-24 15:48 | PLAN ---
[facility] [place] [address] REHAB UNIT PLAN OF CARE Name: PRIMO THOMAS Room #: 509-P DIS IN M.R.#: [id number] Admission: 06/10/18 Attend Phys: Moy Freitas MD Discharge: 06/24/18 Date of : 48 Report #: [id number] THIS REPORT FOR: //name// CC: Moy Freitas [facility] unknown DATE OF SERVICE: 06/13/2018 SUBJECTIVE: The patient is seen back today in followup. She is in no distress. Last recorded temperature 97.5, pulse 78, respirations 16, blood pressure 151/70. Transfers are min assist. Gait min assist 75 feet front-wheeled walker. Lower body dressing has been min assist. Mild comprehensive deficits on mechanical soft diet with thin liquids. ASSESSMENT: 1. Critical illness myopathy. 2. Acute respiratory failure, status post decannulated trach, 06/04/2018. 3. Bilateral vocal cord paralysis. 4. Abdominal aortic aneurysm, status post redo sternotomy with TAVR. 5. Coronary artery disease with previous AL. 6. History of cerebrovascular accident in 07/2017. 7. Hyperlipidemia. 8. Protein-calorie malnutrition. 9. Depression. 10. Degenerative arthritis. 11. History of tobacco abuse. PLAN: The overall plan of care is based on the preadmission screen, post-admission physician evaluation and information garnered from therapy assessments. 1. Estimated length of stay is probably at least 2 weeks. 2. Medical prognosis is reasonably good. 3. Anticipated interventions includes the interdisciplinary acute inpatient rehabilitation program with PT and OT and speech, rehabilitation nursing assisting regarding medication management, skin care prophylaxis, bowel and bladder issues and nursing education. 4. Anticipated functional outcomes would be for her to become modified independent with transfers, mobility and ADLs as well as communication, cognition and swallowing. ENT is involved as well. 5. Discharge destination would be back to the home setting. Two story house, 10-12 steps in. 6. Expected therapy by discipline includes PT and OT and speech 1 hour per day each five days a week throughout the duration of the acute inpatient rehabilitation stay. <ELECTRONICALLY SIGNED> By: Moy Freitas MD 06/24/18 1548 [id number] Moy Freitas MD /[facility]
--- NOTE | 2018-06-24 15:48 | H ---
[facility] [place] [address] HISTORY AND PHYSICAL Name: PRIMO THOMAS Room #: 509-P [facility] IN M.R.#: [id number] Admission: 06/10/18 Attend Phys: Moy Freitas MD Discharge: 06/24/18 Date of : 48 Report #: [id number] THIS REPORT FOR: //name// CC: Moy Freitas [facility] unknown DATE OF SERVICE: 06/10/2018 POSTADMISSION PHYSICIAN EVALUATION HISTORY OF PRESENT ILLNESS: The patient is a 67-year-old white female who was admitted to [facility] inpatient rehabilitation unit from [facility]. She had an abdominal aortic aneurysm status post redo sternotomy with transcatheter aortic valve replacement at [facility] and had a complicated stay as noted in her history and physical. She developed pneumonia with acute respiratory failure requiring tracheostomy, PEG tube placement and ultimately required tracheostomy. She had noted vocal cord paralysis bilaterally. During her LTAC stay, she was decannulated, 06/04/2018 and has been on room air since that time. PEG tube has not been utilized and she has been tolerating her diet. She will need to have occasional pills, put on her PEG tube. She is to have Jevity boluses if she eats less than 50% of her meal. She was noted to have significant weakness, upper and lower extremities with critical illness myopathy with her prolonged stay. She has now been admitted for acute in-hospital inpatient rehabilitation. Please see the above noted past medical history, code status, allergies and social history. MEDICATIONS: Please see the medication listing. This includes vitamins, herbals, and supplements and over the counters as per report. REVIEW OF SYSTEMS: No current complaints of chest pain, shortness of breath, abdominal discomfort. She complains of generalized weakness, upper and lower extremities. PHYSICAL EXAMINATION: GENERAL: She is a pleasant 67-year-old white female in no obvious distress. VITAL SIGNS: Last recorded temperature is 97.9, pulse 82, respirations 20, blood pressure 122/65. She is alert. HEENT: Appeared to be benign. NEUROLOGIC: Trach area is scabbed over. She is able to speak to me, although her voice appears somewhat soft. Follows basic commands. CHEST: Sounded clear to auscultation. CARDIOVASCULAR: Regular rate and rhythm. ABDOMEN: PEG tube site appears intact, bowel sounds positive, nontender. GENITOURINARY AND RECTAL: Deferred. EXTREMITIES: She has functional range of motion of both upper extremities. Strength is a grade 4-/5 to 3+/5. Lower extremities functional range of motion [address] [address] HISTORY AND PHYSICAL Name: PRIMO THOMAS Room #: 509-P [facility] IN M.R.#: [id number] Admission: 06/10/18 Attend Phys: Moy Freitas MD Discharge: 06/24/18 Date of : 48 Report #: [id number] with strength grade 3+ to 4-/5. There is no calf swelling. No clonus. Functionally, she has been needing assistance with basic mobility skills. ASSESSMENT: 1. Critical illness myopathy. 2. Acute respiratory failure with bilateral vocal cord paralysis status post tracheostomy, status post decannulation, 06/04/2018. 3. Abdominal aortic aneurysm status post redo sternotomy with transcatheter aortic valve replacement. 4. Coronary artery disease with previous myocardial infarction. 5. History of ischemic cerebrovascular accident, 07/2017, status post TPA. 6. Hyperlipidemia. 7. Protein-calorie malnutrition. 8. Depression. 9. Degenerative joint disease with chronic low back pain. 10. History of tobacco abuse. PLAN: The patient is admitted for acute in-hospital inpatient rehabilitation. From a postadmission physician evaluation perspective, there are no relevant changes since the preadmission screening. Please see the above review of prior and current medical and functional conditions and comorbidities. Please see the patient's previous and current functional status. As far as risk of complications, the patient has multiple medical comorbidities as noted above. Initial plan of care involves the interdisciplinary acute inpatient rehabilitation program with goal of maximizing the patient's functional independence, so she can hopefully return back to her prior living situation. Measurable functional goals would be for her to become modified independent at least at a walker level with mobility and ADLs as well as overall improvement with communication, cognition as well as swallow issues. Speech therapy is to further assess. Prognosis is reasonably good with estimated length of stay probably at least 2 weeks and potentially longer if warranted. Potential barriers would include the patient's multiple medical comorbidities and decreased functional status. The patient meets diagnostic criteria for an acute in-hospital inpatient rehabilitation stay. She meets the medical necessity criteria. We will have the multiple hospice care sales consultant physicians involved. She does have the tolerance for therapies and has appropriate discharge goals back to the home setting. <ELECTRONICALLY SIGNED> By: Moy Freitas MD 06/24/18 1548 [id number] Moy Freitas MD /[facility]
--- NOTE | 2018-06-24 16:14 | NUR ---
[facility] FAXED REFERRAL FOR A NEBULIZER WITH TIFFANIE PEDRO WITH LEX IN ADM. SHE WILL TRY TO SEE IF PT. QUALIFIES FOR NEB.
== END 2018-06-24 15:45 | disposition home health service (06) | DRG 91 ==
LOC: ENTRNSPT 06-24 15:24 → EDTRNSPTSTS 06-24 15:44
PROVIDERS: Internal Medicine Geriatric Medicine; Nurse Practitioner Family; ADMIT Physical Medicine & Rehabilitation
DX: G72.81 Critical illness myopathy (principal); J96.00 Acute respiratory failure, unspecified whether with hypoxia or hypercapnia; E46 Unspecified protein-calorie malnutrition; I71.4 Abdominal aortic aneurysm, without rupture; J38.02 Paralysis of vocal cords and larynx, bilateral; I25.10 Atherosclerotic heart disease of native coronary artery without angina pectoris; E78.5 Hyperlipidemia, unspecified; M47.9 Spondylosis, unspecified; R53.81 Other malaise; I10 Essential (primary) hypertension; M19.90 Unspecified osteoarthritis, unspecified site; F43.23 Adjustment disorder with mixed anxiety and depressed mood; M10.9 Gout, unspecified; G89.29 Other chronic pain; M54.5 Low back pain; R13.10 Dysphagia, unspecified; Z88.8 Allergy status to other drugs, medicaments and biological substances; Z88.6 Allergy status to analgesic agent; Z87.891 Personal history of nicotine dependence; I25.2 Old myocardial infarction; Z86.73 Personal history of transient ischemic attack (TIA), and cerebral infarction without residual deficits; Z79.899 Other long term (current) drug therapy; Z79.82 Long term (current) use of aspirin; Z68.21 Body mass index [BMI] 21.0-21.9, adult
CPT/HCPCS: 10112

== ENCOUNTER 2018-07-01 11:41 | Emergency (ER) | payer OTHER ==
[~2018-07-01] VITALS: Ht 167.6 cm; Wt 59.0 kg
--- NOTE | ~2018-07-01 | EKG ---
[address] [place] [address] ELECTROCARDIOGRAM REPORT Name: PRIMO THOMAS Room #: [facility].R.#: [id number] ������������������ Admission: ������������������ Attend Phys: Discharge: ������������������ Date of : 48 Report #: [id number] ����������������������������������������������������������������� [id number] THIS REPORT FOR: //name// [facility] ED Test Date: 2018-07-01 Test Time: 12:05:45 Pat Name: PRIMO THOMAS Department: Room: Gender: F Sales Support Engineer: SILVINA : 1950 Requested By: Damon Rosenbaum Order Number: [id number] MD: Measurements Intervals [place] Rate: 71 P: -19 [place]: 157 QRS: -80 QRSD: 91 T: 88 QT: 404 QTc: 439 Interpretive Statements Sinus rhythm Inferior infarct, old Probable anterior infarct, age indeterminate Compared to ECG 12/28/1998 07:19:00 Myocardial infarct finding now present Left-axis deviation no longer present Poor R-wave progression no longer present [email or web address] ��������������������������������������������� ���������������������������������������� By: ��������������������������������������������� 1205 1205 [employer] /EPI
[~2018-07-01 11:41] MED LIST changes: +ALPRAZOLAM 0.0.25 M1 PO; +ATORVASTATIN CA40 MG PO; +FLONASE 0.05%50 MCG NASAL; +LOPRESSOR25 PO; +OXYCODONE HCL 55 MG PO; +VOLTAREN GEL 1100 G1 TOP
[2018-07-01 12:25] LABS: ABSOLUTE NEUTROPHILS 6.9 thou/uL (1.4-8.2); EOSINOPHILS 0.9 % (0.0-3.0); HEMATOCRIT 33.6 % (37.0-47.0); HEMOGLOBIN 11.2 gm/dL (12.0-15.0); LYMPHOCYTES 14.2 % (24.0-44.0); MCH 30.4 pg (26.0-34.0); MCHC 33.4 g/dL (28.0-37.0); MONOCYTES 6.1 % (1.0-8.0); PLATELET COUNT 256 thou/uL (150-400); POLYS 77.8 % (36.0-66.0); WBC 8.8 thou/uL (4.0-11.0)
[2018-07-01 12:32] LABS: ANION GAP 11 mmol/L (7-16); BUN 9 mg/dL (7-18); CALCIUM 9.6 mg/dL (8.5-10.1); CHLORIDE 103 mmol/L (98-107); CO2 27 mmol/L (21-32); CREATININE 0.6 mg/dL (0.6-1.0); GLUCOSE 121 mg/dL (74-106); POTASSIUM 3.6 mmol/L (3.5-5.1); SODIUM 141 mmol/L (136-145)
[2018-07-01 12:40] LABS: TROPONIN-I <0.06 ng/mL (<0.06)
[2018-07-01] MEDS ORDERED: ALPRAZOLAM 0.0.25 M1 PO (13:12)
[2018-07-01] MEDS ORDERED: NORCO 5-325 TA1 EACH PO (13:12)
[2018-07-01 14:02] VITALS: BP 124/72
[2018-07-01] MEDS ORDERED: PLAVIX 75 MG TA75 MG PO (14:03)
[2018-07-01] MEDS ORDERED: ATORVASTATIN CA40 MG PO (14:04)
== END 2018-07-01 15:01 | disposition home or self-care (01) ==
LOC: ER 11:41
PROVIDERS: Emergency Medicine
DX: F45.8 Other somatoform disorders (principal); M54.9 Dorsalgia, unspecified; G89.29 Other chronic pain; R06.00 Dyspnea, unspecified; Z88.1 Allergy status to other antibiotic agents; Z88.5 Allergy status to narcotic agent; Z88.8 Allergy status to other drugs, medicaments and biological substances